=== PATIENT | female | born 1940 | race Caucasian/White ===

== ENCOUNTER 2017-01-12 00:29 | Emergency (ER) | payer SELFPAY ==
[~2017-01-12] VITALS: Ht 160 cm; Wt 70.5 kg
[2017-01-12 00:34] VITALS: Ht 160 cm; Wt 70.5 kg
--- NOTE | 2017-01-12 01:18 | ERA ---
ER Documentation Chief Complaint Date/Time DATE: 01/12/17 TIME: 01:18 Chief Complaint bleeding varicous veins in right foot today HPI The patient is a 76-year-old female, presenting to the ER because of bleeding varicosis vein from the right foot tonight. She has similar symptoms previously , denies syncope, near syncope, weakness, neck pain, chest pain, dyspnea, abdominal pain, vomiting, dysuria. She does not smoke or drink Past medical/surgical history: None ROS All systems reviewed and are negative except as per history of present illness. Medications Home Meds Reported Medications Ibuprofen* (Ibuprofen*) 200 Mg Capsule, 200 MG PO QID Y for PAIN, CAP 01/12/17 Omega3,5,6,7,9 No.1/[place] Oil (Complete [place] Softgel) 1 Each Capsule, 1 EACH PO, CAP 01/12/17 Allergies Allergies: Coded Allergies: Penicillins (Verified Allergy, Unknown, 01/12/17) Physical Exam Vitals Vital Signs Date Time Temp Pulse Resp B/P Pulse Ox O2 Delivery O2 Flow Rate FiO2 01/12/17 03:43 98.3 68 17 122/70 97 Room Air 01/12/17 00:34 98.3 91 20 139/72 97 Physical Exam Const: No acute distress. Head: Atraumatic. Eyes: Normal Conjunctiva. ENT: Normal External Ears, Nose and Mouth. Neck: Full range of motion. No meningismus. Resp: Clear to auscultation bilaterally. Cardio: Regular rate and rhythm. Abd: Soft, non distended, normal bowel sounds, non tender. Skin: No petechiae or rashes. Back: No midline or flank tenderness. Ext: There are 2 bleeding varicosis vein at right ankle, no calf tenderness Neur: Awake and alert. No focal deficit Psych: Normal Mood and Affect. Results 24 hrs Current Medications Medications (Trade) Dose Ordered Sig/[place] Route PRN Reason Start Time Stop Time Status Last Admin Dose Admin Lidocaine (Xylocaine 1% (Mdv) 20 ml) 20 ml ONCE STAT INJ 01/12/17 01:21 01/12/17 01:39 DC Lidocaine/ Epinephrine (Xylocaine 1%/ Epi (Pf)) 30 ml ONCE STAT INJ 01/12/17 01:38 01/12/17 01:39 DC Lidocaine/ Epinephrine (Xylocaine 2%/ Epi Mpf(Sdv)) 20 ml ONCE ONCE INJ 01/12/17 02:00 01/12/17 02:01 DC Procedures/MDM Procedure: Suture of bleeding varicosis vein Risks, benefits, alternatives were explained to the patient who consented for the procedure Lidocaine 1% with epi was used to anesthetize the patient. The 2 bleeding varicosis vein was closed with figure 8 suture using Ethilon 3.0 with good response Departure Diagnosis: Primary Impression: Bleeding from varicose veins of right lower extremity Condition: Good Comments She was advised to return in 2 days for wound check and 10 day for suture removal I discussed the findings with the patient. I advised the patient to follow-up with the primary physician in about 1-2 days, sooner if needed and return if any concern. PAXTON HOYT MD Jan 12, 2017 01:18
[2017-01-12] MEDS ORDERED: LIDOCAINE 1% (MDV) 20 ML INJ INJ STA (01:21)
[2017-01-12] MEDS ORDERED: LIDOCAINE 1%/EPI 30 ML INJ INJ STA (01:38)
[2017-01-12] MEDS ORDERED: LIDOCAINE 2%/EPI MPF (SDV) 20 ML VIAL INJ ONE (02:00)
[2017-01-12] MEDS ORDERED: IBUP200C PO (02:15)
[2017-01-12] MEDS ORDERED: OMEG-129 PO (02:15)
[2017-01-12 03:43] VITALS: BP 122/70; PULSE 68; RESP 17; TEMP 98.3
== END 2017-01-12 03:44 | disposition home or self-care (01) ==
LOC: E/R 00:29
DX: I83.11 Varicose veins of right lower extremity with inflammation (principal); S85.811A Laceration of other blood vessels at lower leg level, right leg, initial encounter; X58.XXXA Exposure to other specified factors, initial encounter; Y92.9 Unspecified place or not applicable

== ENCOUNTER 2017-01-14 09:45 | Emergency (ER) | payer SELFPAY ==
[~2017-01-14] VITALS: Ht 149.9 cm; Wt 70.0 kg
[~2017-01-14 09:45] MED LIST: IBUP200C PO; OMEG-129 PO
[2017-01-14 09:47] VITALS: Ht 149.9 cm; Wt 70.0 kg
--- NOTE | 2017-01-14 10:38 | ERD ---
ER Documentation Chief Complaint Date/Time DATE: 01/14/17 TIME: 10:37 Chief Complaint rt foot wound recheck HPI 76-year-old female presents for wound check. 2 days ago she had some bleeding varicose veins ligated with sutures. She has no fevers, redness has no new complaints. ROS All systems reviewed and are negative except as per history of present illness. Medications Home Meds Reported Medications Ibuprofen* (Ibuprofen*) 200 Mg Capsule, 200 MG PO QID Y for PAIN, CAP 01/12/17 Omega3,5,6,7,9 No.1/[place] Oil (Complete [place] Softgel) 1 Each Capsule, 1 EACH PO, CAP 01/12/17 Allergies Allergies: Coded Allergies: Penicillins (Verified Allergy, Unknown, 01/12/17) PMhx/Soc Medical and Surgical Hx: pt denies Medical Hx, pt denies Surgical Hx History of Surgery: No Anesthesia Reaction: No Hx Neurological Disorder: No Hx Respiratory Disorders: No Hx Cardiac Disorders: No Hx Psychiatric Problems: No Hx Miscellaneous Medical Probl: No Hx Alcohol Use: No Hx Substance Use: No Hx Tobacco Use: No Smoking Status: Never smoker Physical Exam Vitals Vital Signs Date Time Temp Pulse Resp B/P Pulse Ox O2 Delivery O2 Flow Rate FiO2 01/14/17 09:47 98.1 88 16 135/79 98 Physical Exam Const: [] Head: Atraumatic Eyes: Normal Conjunctiva ENT: Normal External Ears, Nose and Mouth. Neck: Full range of motion..~ No meningismus. Resp: Clear to auscultation bilaterally Cardio: Regular rate and rhythm, no murmurs Abd: Soft, non tender, non distended. Normal bowel sounds Skin: No petechiae or rashes. On the right ankle area there are 2 areas of [id number] sutures without active bleeding, redness, discharge in the right lower extremity is neurovascular intact. Back: No midline or flank tenderness Ext: No cyanosis, or edema Neur: Awake and alert Psych: Normal Mood and Affect Procedures/MDM This patient is a satisfactorily healing wound from suturing of bleeding varicose veins 2 days ago. She will discharged home with instructions for suture removal in 5 days. She should return sooner for fevers, redness, new worsening symptoms. Departure Diagnosis: Primary Impression: Encounter for wound re-check Additional Impression: Bleeding from varicose veins of right lower extremity Condition: Stable Patient Instructions: Wound Check, Lac F/U (No Infection) Additional Instructions: Suture removal in 5 days. Recheck sooner for redness, fevers, new symptoms. ALFREDO ROBLES MD Jan 14, 2017 10:38
== END 2017-01-14 10:55 | disposition home or self-care (01) ==
LOC: FTE 09:45
DX: Z48.01 Encounter for change or removal of surgical wound dressing (principal); I83.891 Varicose veins of right lower extremity with other complications
CPT/HCPCS: 99281

== ENCOUNTER 2017-01-20 07:40 | Emergency (ER) | END 2017-01-20 08:20 | disposition home or self-care (01) | DX: Z48.02 Encounter for removal of sutures (principal) ==

== ENCOUNTER 2018-05-14 21:39 | Inpatient (IN) | END 2018-05-18 16:50 | disposition home or self-care (01) | DRG 280 ==